=== PATIENT | female | born 1990 | race Caucasian/White ===

== ENCOUNTER 2020-04-21 19:24 | Emergency (ER) | payer OTHER ==
[~2020-04-21] VITALS: Ht 165.1 cm; Wt 61.2 kg
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
[2020-04-21] MEDS ORDERED: LEVO-T50 MCG PO (19:35)
[2020-04-21] MEDS ORDERED: TRAMADOL 50 MG50 MG PO (21:35)
[2020-04-21] MEDS ORDERED: NAPROSYN500 MG PO (21:35)
[2020-04-21 23:20] VITALS: BP 110/67
== END 2020-04-21 23:53 | disposition home or self-care (01) ==
LOC: ER 19:24
DX: S91.021A Laceration with foreign body, right ankle, initial encounter (principal); S93.491A Sprain of other ligament of right ankle, initial encounter; Z79.899 Other long term (current) drug therapy; W23.0XXA Caught, crushed, jammed, or pinched between moving objects, initial encounter; Y93.89 Activity, other specified; Y92.69 Other specified industrial and construction area as the place of occurrence of the external cause; Y99.9 Unspecified external cause status